=== PATIENT | male | born 1965 | race Caucasian/White ===

== ENCOUNTER → 2017-12-06 | Outpatient (CLI) | payer BC ==
[~2017-12-06] MED LIST: BYSTOLIC10 MG PO; PRILOSEC 20MG20 MG PO; PRISTIQ 50 MG T50 MG PO; ZOCOR 40MG40 MG PO
== END ==
LOC: COL.RAD 09:09
DX: C61 Malignant neoplasm of prostate (principal); R59.0 Localized enlarged lymph nodes; N20.0 Calculus of kidney

== ENCOUNTER 2017-12-08 12:17 | Inpatient (IN) | payer BC ==
[~2017-12-08] VITALS: Ht 190.5 cm; Wt 152.3 kg
[2018-01-04] VITALS (11 sets, daily range): BP systolic 138–163; BP diastolic 75–90; PULSE 73–112; TEMP 97.9–98.8
[2018-01-04] MEDS ORDERED: EFFEXOR 75M75 MG/TAB PO (05:59)
[2018-01-04] MEDS ORDERED: ULTRAM 50MG TAB50 MG PO (05:59)
[2018-01-05] VITALS (7 sets, daily range): BP systolic 112–150; BP diastolic 63–80; PULSE 64–87; TEMP 97.9–98.6
[2018-01-05 06:10] LABS: BASO % 0.2 % (0.0-2.0); GRAN # 18.2 (1.4-6.5); GRAN % 83.8 % (42.2-75.2); HEMATOCRIT 40.2 % (42.0-52.0); HEMOGLOBIN 13.5 g/dl (13.5-18.0); LYMPH # 1.4 (1.2-3.4); LYMPH % 6.4 % (20.0-51.0); MEAN CELL VOLUME 93 fl (80.0-100.0); MEAN CORPUSCULAR HEMOGLOBIN 31 pg (27.0-31.0); MEAN CORPUSCULAR HGB CONC 34 g/dl (33.0-37.0); MEAN PLATELET VOLUME 9.5 fl (7.4-10.4); MONO % 9.1 % (1.7-9.3); PLATELET COUNT 288 K/mm3 (130-400); RED BLOOD COUNT 4.32 M/mm3 (4.20-5.60); REDCELL DISTRIBUTION WIDTH-CV 12.9 % (11.5-14.5)
[2018-01-05 06:15] LABS: CALCIUM 8.3 mg/dL (8.4-10.2); CREATININE, serum 0.78 mg/dL (0.66-1.25); POTASSIUM 4.1 mmol/L (3.4-5.0)
[2018-01-05 06:32] LABS: BAND 12 % (0-10); LYMPHOCYTE 8 % (20.0-51.0); NEUTROPHILS 67 % (42.0-75.2)
[2018-01-05 06:34] LABS: PLATELET ESTIMATE NORMAL (NORMAL)
[2018-01-06 03:30] VITALS: BP 118/72; PULSE 63; TEMP 98.1
[2018-01-06 08:00] VITALS: BP 131/74; PULSE 58; TEMP 97.9
== END 2018-01-06 12:04 | disposition home or self-care (01) | DRG 708 ==
LOC: JCC 01-04 05:35 → INPTSU 01-04 05:35 → SURG 01-04 07:30 → JCC 01-04 14:40
PROVIDERS: Urology
PROC: 0VB70ZZ Excision of Left Tunica Vaginalis, Open Approach (ICD-10-PCS; 2018-01-04)
PROC: 8E0W4CZ Robotic Assisted Procedure of Trunk Region, Percutaneous Endoscopic Approach (ICD-10-PCS; 2018-01-04)
PROC: 0WQF4ZZ Repair Abdominal Wall, Percutaneous Endoscopic Approach (ICD-10-PCS; principal; 2018-01-04 07:30)
PROC: 0VT04ZZ Resection of Prostate, Percutaneous Endoscopic Approach (ICD-10-PCS; 2018-01-04 07:30)
PROC: 07TC4ZZ Resection of Pelvis Lymphatic, Percutaneous Endoscopic Approach (ICD-10-PCS; 2018-01-04 07:30)
DX: C61 Malignant neoplasm of prostate (principal); N43.3 Hydrocele, unspecified; K42.9 Umbilical hernia without obstruction or gangrene
CPT/HCPCS: A9284; C1713; J0690; J1650; J1885; J2270; J2370; J2704; J3010; J7120

== ENCOUNTER → 2018-02-04 | Outpatient (CLI) | payer BC ==
[~2018-02-04] MED LIST changes: +EFFEXOR 75M75 MG/TAB PO; +ULTRAM 50MG TAB50 MG PO
== END ==
LOC: COL.RAD 09:50
DX: C61 Malignant neoplasm of prostate (principal); R59.0 Localized enlarged lymph nodes; Z90.79 Acquired absence of other genital organ(s)

== ENCOUNTER → 2021-04-02 | Outpatient (CLI) | payer BC | LOC: COL.RAD 07:29 | DX: K21.9 Gastro-esophageal reflux disease without esophagitis (principal); K44.9 Diaphragmatic hernia without obstruction or gangrene ==

== ENCOUNTER → 2021-06-23 | Outpatient (CLI) | payer BC | LOC: COL.RAD 07:32 | DX: K80.20 Calculus of gallbladder without cholecystitis without obstruction (principal); K57.30 Diverticulosis of large intestine without perforation or abscess without bleeding; K42.9 Umbilical hernia without obstruction or gangrene; N32.89 Other specified disorders of bladder; M51.36 Other intervertebral disc degeneration, lumbar region ==

== ENCOUNTER → 2021-07-18 | Outpatient (CLI) | payer BC | LOC: ZCOL.LAB 16:13 | DX: R05.1 Acute cough (principal); Z20.822 Contact with and (suspected) exposure to COVID-19 ==

== ENCOUNTER → 2021-08-20 | Day surgery (SDC) | payer BC ==
[~2021-08-20] VITALS: Ht 190.5 cm; Wt 144.5 kg
[2021-08-20] VITALS (7 sets, daily range): BP systolic 109–144; BP diastolic 73–90; PULSE 79–98; TEMP 98.2–98.3
[~2021-08-20] MED LIST changes: +ALEVE 220MG220 MG PO; +NORCO 325 MG-51 TAB PO; +VITAMIND3 5000 PO
--- NOTE | 2021-08-20 10:35 | NUR ---
Patient returns to room 7 per cart from PACU accompanied by Iris RN and is awake and alert. Temp 97.1 and sats 98% on 2L per nasal cannula. Bandaids x4 on lap sites and abdominal binder in place. IV fluids infusing #18G left hand. Siderails up x2 and call light in reach. Spouse in room. Taking ice chips and denies pain or nausea.
--- NOTE | 2021-08-20 10:50 | NUR ---
Resting and denies pain or nausea. Talking with spouse.
--- NOTE | 2021-08-20 11:05 | NUR ---
Continues to rest without complaints of pain or nausea. Tolerates ice chips.
--- NOTE | 2021-08-20 11:20 | NUR ---
Eating applesauce and toast. Continues to deny pain or nausea.
--- NOTE | 2021-08-20 11:35 | NUR ---
Continues eating snack.
--- NOTE | 2021-08-20 12:00 | NUR ---
IV to INT and assisted up to the bathrom. Patient voids and returns to room. INT needle discontinued and site is free of redness.
--- NOTE | 2021-08-20 12:19 | NUR ---
Medicated with Tramadol 50mg po in preparation for going home. Dr. Holley will send new script for Tramadol and cancel [facility] due to patient not tolerating [facility].
--- NOTE | 2021-08-20 12:39 | NUR ---
Patient is dressed. States that he is ready for discharge. Dismissal instructions given and voices understanding of these. Patient is wearing abdominal binder.
--- NOTE | 2021-08-20 12:45 | NUR ---
Dismissed to home driven by spouse and taken to the front door per wheelchair and assisted into vehicle with dismissal instructions in hand.
== END ==
LOC: SDCO 05:29
DX: K43.0 Incisional hernia with obstruction, without gangrene (principal); C61 Malignant neoplasm of prostate; I10 Essential (primary) hypertension; E78.00 Pure hypercholesterolemia, unspecified; K21.9 Gastro-esophageal reflux disease without esophagitis; Z79.899 Other long term (current) drug therapy
CPT/HCPCS: C1781; J0330; J0690; J1100; J1170; J1885; J2175; J2405; J2704; J3010; J7120